=== PATIENT | male | born 2000 ===

== ENCOUNTER 2022-08-14 16:58 | Outpatient (CLI) | payer OTHER, SELFPAY ==
[2022-08-15 12:08] LABS: Liquefaction Semen Complete in 30 min. (<30 minutes); Semen Color Opaque (Grey-opaque); Semen Immotility 50 %; Semen Morphology Result to Follow; Semen Non-Progressive Motility 10 %; Semen Progressive Motility 40 % (>32); Semen Total Motility 50 (>40% (PM+NP)); Semen Viscosity Increased (Not Increa.); pH Semen 8.5 (7.2-8.0)
[2022-08-15 12:09] LABS: Sperm Count 14.9 Mil/mL (60-150 million/mL)
[2022-08-29 11:59] LABS: Fructose, Semen 266 mg/dL (150-600)
== END 2022-08-14 16:59 | disposition home or self-care (01) ==
PROVIDERS: PCP Family Medicine; Visit Provider Nurse Practitioner Family
DX: Z31.69 Encounter for other general counseling and advice on procreation (principal)
CPT/HCPCS: 82757; 88160; 89320